=== PATIENT | male | born 1985 | race Caucasian/White ===

== ENCOUNTER 2023-02-21 22:13 | Emergency (ER) | payer OTHER, SELFPAY ==
[2023-02-21 22:25] VITALS: BP 116/82; PULSE 87; RESP 18; TEMP 37.9; O2SAT 98
--- NOTE | 2023-02-21 23:05 | ED.WOUNDLAC ---
HPI - Wound/Laceration General Chief Complaint: Wound/Laceration Stated Complaint: finger laceration Source: patient Mode of arrival: ambulatory Limitations: no limitations History of Present Illness HPI narrative: Patient is a 38-year-old male with a significant past medical history presents today with a laceration. He has laceration to his left 5th digit. If she has to decent size lacerations that were from chopping wood. The bleeding is controlled and has stopped now this happened about 2 hours ago. He tried his best to clean up the wound before he came here. He will most likely need stitches. Onset (ago): hour(s) Location: other Extremity Location: Left: hand (5th finger) Place: home Patient tetanus UTD: Yes Context: accidental Associated symptoms: pain Related Data Allergies Allergy/AdvReac Type Severity Reaction Status Date / Time codeine Allergy Intermediate Verified 02/18/17 10:09 Review of Systems Review of Systems: All systems reviewed & are unremarkable except as noted in HPI and below Constitutional: Constitutional: Reports no additional constitutional complaints Eyes: Eyes: Reports no additional eye complaints ENT: Reports system reviewed and no additional complaints, except as documented Cardiovascular: Cardiovascular: Reports no additional cardiovascular complaints Respiratory: Respiratory: Reports no additional respiratory complaints Gastrointestinal: Gastrointestinal: Reports no additional gastrointestinal complaints Musculoskeletal: Musculoskeletal: Reports no additional musculoskeletal complaints Integumentary/Breasts: Comments: Lacerations to left 5th digit Neurologic: Reports system reviewed and no additional complaints, except as documented Psychiatric: Psychiatric: Reports no additional psychiatric complaints Endocrine: Endocrine: Reports no additional endocrine complaints Hematologic/Lymphatic: Hematologic/Lymphatic: Reports no additional hematologic/lymphatic complaints Allergic/Immunologic: Allergic/Immunologic: Reports no additional allergic/immunologic complaints [facility] Family History Family History Other Diabetes mellitus Family history of cardiovascular disease Hypertension Social History Social History Smoking status: Unknown if ever smoked Alcohol intake: never Exam Const: General: healthy appearing Nutritional Appearance: well nourished Orientation/consciousness: patient oriented x3 Limitations: no limitations HENMT: Head: normal to inspection Ears: external ears normal Face/Nose/Sinus: Normal external nose present Face and sinus: normal facial exam Mouth: Yes Normal oral and palatal mucosa present Teeth and gingiva: dentition normal Throat: posterior oropharynx normal Eyes: Conjunctivae: conjunctivae normal Pupils: Equal, round and reactive pupils present EOM: EOMs intact bilaterally Direct Ophthalmoscopy: no photophobia Neck: Neck: normal visual inspection Chest: Chest palpation & inspection: normal inspection of the chest Resp: Effort & Inspection: normal respiratory effort Auscultation: clear to auscultation bilaterally Cardio: Rate: regular rate Rhythm: regular rhythm GI: GI Palp: Yes Soft to palpation Skin: General skin exam: normal color Rashes: no rashes Wounds: wounds noted ( 3 cm laceration to left 5th digit, below is a 2 cm laceration) Neuro: General: patient oriented x3 Cranial nerves: Yes Nystagmus not present Speech: normal speech Gait exam (Neuro): Normal gait present Extrem: General: normal to inspection Psych: Mental Status: mental status grossly normal Affect: normal affect Attitude: cooperative Course Vital Signs Vital signs: Vital Signs Temperature 100.3 F H 02/21/23 22:25 Pulse Rate 87 02/21/23 22:25 Respiratory Rate 18 02/21/23 22:25 Blood Pressure 116/82 02/21/23 22:
[2023-02-21 23:12] VITALS: BP 122/74; PULSE 70; RESP 18; O2SAT 97
== END 2023-02-21 23:18 | disposition home or self-care (01) ==
PROVIDERS: Emergency Provider Family Medicine
DX: S61.217A Laceration without foreign body of left little finger without damage to nail, initial encounter (principal); W45.8XXA Other foreign body or object entering through skin, initial encounter
CPT/HCPCS: 12002; 99283

== ENCOUNTER 2023-08-03 18:16 | Emergency (ER) | payer OTHER, SELFPAY ==
[2023-08-03 18:19] VITALS: BP 131/92; PULSE 81; RESP 20; TEMP 36.1; O2SAT 97
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
[2023-08-03] MEDS: HYDROcodone/acetaminophen (*CRX) 5-325 MG TABLET 1 TAB PO (18:43)
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
[2023-08-03 19:05] VITALS: BP 131/92; PULSE 81; RESP 20; TEMP 36.1; O2SAT 97
== END 2023-08-03 19:05 | disposition home or self-care (01) ==
PROVIDERS: Emergency Provider Student in an Organized Health Care Education/Training Program
DX: T65.91XA Toxic effect of unspecified substance, accidental (unintentional), initial encounter (principal); T22.611A Corrosion of second degree of right forearm, initial encounter; T32.0 Corrosions involving less than 10% of body surface
CPT/HCPCS: 99283; A9270

== ENCOUNTER 2024-06-01 13:38 | Emergency (ER) | payer OTHER, SELFPAY ==
--- NOTE | ~2024-06-01 | XR_ITS ---
EXAMINATION: XR thoracic spine 2V DATE: 06/01/2024 14:11 INDICATION: Upper back pain post twisting injury TECHNIQUE: One AP, lateral and lateral swimmer's views of the thoracic spine were obtained. COMPARISON: None. FINDINGS: 9 degrees upper thoracic levocurvature. Sagittal alignment is normal. Vertebral body heights are norm al. Mild disc height loss and minimal degenerative endplate changes at a few levels in the mid and lo wer thoracic spine. Multiple scattered small calcite nodules throughout both lungs and possibly in th e liver consistent with old granulomatous disease. No pleural effusion. Heart size is normal. IMPRESSION: 1. 9 degrees upper thoracic levocurvature with mild thoracic spondylosis. Reviewed, dictated and finalized at location A.
[2024-06-01 13:41] VITALS: BP 119/94; PULSE 84; RESP 18; TEMP 36.8; O2SAT 98
[2024-06-01 14:00] VITALS: BP 111/69; PULSE 83; RESP 17; O2SAT 97
--- NOTE | 2024-06-01 14:07 | ED_ITS ---
HPI - General Adult General Chief complaint: Back Pain/Injury Stated complaint: back pain Time Seen by Provider: 06/01/24 13:55 History of Present Illness HPI narrative: Nicholas presented to clinic with upper left back pain. It started after he lifted a heavy object but become worse today despite taking ibuprofen. No falls or trauma. No loss of bowel/bladder control, weakness or paralysis. Related Data Allergies Allergy/AdvReac Type Severity Reaction Status Date / Time No Known Allergies Allergy Verified 06/01/24 13:41 Review of Systems Review of Systems: All systems reviewed & are unremarkable except as noted in HPI and below PMFSH Family History Family History Other Diabetes mellitus Family history of cardiovascular disease Hypertension Social History Social History Smoking status: Unknown if ever smoked Alcohol intake: never Exam Const: General: cooperative, healthy appearing, comfortable, no acute distress, well developed, alert, awake and Physically active Orientation/consciousness: oriented to person, oriented to place and oriented to time HENMT: Head: normal to inspection, normocephalic and atraumatic Ears: hearing grossly normal bilaterally and external ears normal Face/Nose/Sinus: Normal external nose present Eyes: General: appearance normal, both eyes and all related structures Periorbital: periorbital findings normal Sclera: sclerae normal Pupils: Equal, round and reactive pupils present Neck: Neck: normal visual inspection Chest: Chest palpation & inspection: normal inspection of the chest Resp: Effort & Inspection: normal respiratory effort, able to speak in complete sentences and no respiratory distress Cardio: Jugular venous distension: no JVD Back/Spine/Pelvis: Other: TTP in the upper left back, muscles are hypertonic Skin: General skin exam: normal color and no rashes or lesions noted Neuro: General: oriented to person, oriented to place and oriented to time Cranial nerves: Yes Equal, round and reactive pupils present Extrem: General: normal to inspection Course Course Emergency Course: EXAMINATION: XR thoracic spine 2V DATE: 06/01/2024 14:11 INDICATION: Upper back pain post twisting injury TECHNIQUE: One AP, lateral and lateral swimmer's views of the thoracic spine were obtained. COMPARISON: None. FINDINGS: 9 degrees upper thoracic levocurvature. Sagittal alignment is normal. Vertebral body heights are normal. Mild disc height loss and minimal degenerative endplate changes at a few levels in the mid and lower thoracic spine. Multiple scattered small calcite nodules throughout both lungs and possibly in the liver consistent with old granulomatous disease. No pleural effusion. Heart size is normal. IMPRESSION: 1. 9 degrees upper thoracic levocurvature with mild thoracic spondylosis. Vital Signs Vital signs: Vital Signs Temperature 98.3 F 06/01/24 13:41 Pulse Rate 84 06/01/24 13:41 Respiratory Rate 18 06/01/24 13:41 Blood Pressure 119/94 H 06/01/24 13:41 Pulse Oximetry 98 06/01/24 13:41 Oxygen Delivery Room Air 06/01/24 13:41 Temperature 98.3 F 06/01/24 13:41 Pulse Rate 84 06/01/24 13:41 Respiratory Rate 18 06/01/24 13:41 Blood Pressure 119/94 H 06/01/24 13:41 Pulse Oximetry 98 06/01/24 13:41 Oxygen Delivery Room Air 06/01/24 13:41 Medical Decision Making Vital Signs Vital Signs: Vital Signs Temperature 98.3 F 06/01/24 13:41 Pulse Rate 84 06/01/24 13:41 Respiratory Rate 18 06/01/24 13:41 Blood Pressure 119/94 H 06/01/24 13:41 Pulse Oximetry 98 06/01/24 13:41 Oxygen Delivery Room Air 06/01/24 13:41 Temperature 98.3 F 06/01/24 13:41 Pulse Rate 84 06/01/24 13:41 Respiratory Rate 18 06/01/24 13:41 Blood Pressure 119/94 H 06/01/24 13:41 Pulse Oximetry 98 06/01/24 13:41 Oxygen Delivery Room Air 06/01/24 13:41 Discharge Plan Discharge Clinical Impression: Back pain, thoracic Patient Disposition: Home Condition: Stable Instructions: Back Pain (ED) Patient Language: Slovenian Prescriptions: No Action hydrocodone-acetaminophen 5-325 mg tablet 1 tablet PO Q6H PRN (Reason: pain) Qty: 10 0RF Follow-up/Referrals: UNKNOWN,DOCTOR [Non-Staff] -
[2024-06-01] MEDS: IBUPROFEN 400 MG TABLET PO (14:12)
[2024-06-01 14:30] VITALS: BP 105/72; PULSE 63; RESP 17; O2SAT 98
[2024-06-01 15:00] VITALS: BP 115/83; PULSE 60; RESP 16; TEMP 36.8; O2SAT 97
--- OUTSIDE RECORDS SUMMARY | 2024-06-01 15:30 | XMS_ITS | Clinical Summary ---
Author Organization [facility] Address [address] [place] [address] Care Team Providers Care Biostatistics Teacher Name Role Phone Fei Rosas Primary Care Provider [phone] Social History Tobacco Use Types Packs/Day Years Used Date Smoking Tobacco: Never Assessed Sex and Gender Information Value Date Recorded Sex Assigned at Not on file Legal Sex Male 8:35 PM CDT Gender Identity Not on file Sexual Orientation Not on file Plan of Treatment Health Maintenance Due Date Last Done Comments Annual Physical 01/04/1987 DTaP, Tdap and Td Vaccines (5 - Tdap) 01/04/1995 11/10/1992, 05/24/1987, 12/22/1985, Additional history exists Hepatitis C 01/04/2002 Hepatitis B Vaccines (1 of 3 - 19+ 3-dose series) 01/04/2003 COVID-19 Vaccine ( season) 2023 HPV Vaccines Aged Out No longer eligi ble based on patient's age to complete this topic Meningococcal B Vaccine Aged Out No l onger eligible based on patient's age to complete this topic Meningococcal Vaccine Aged Out No jay ana eligible based on patient's age to complete this topic Pneumococcal Vaccine: Pediatrics (0 to 5 Years) and At-Risk Patients (6 to 49 Years) Aged Out No longer eligible based on patient's age to complete this topic RSV Immunizations Under 20 Months Aged Out No longer eligible based on patient's age to complete this topic Insurance [facility] [employer] Care Teams Biostatistics Teacher Relationship Specialty Start Date End Date Fei Rosas PA [address] [place] [address] PCP - General PHYSICIAN BELTING CUTTER 08/07/23
--- OUTSIDE RECORDS SUMMARY | 2024-06-01 16:20 | XMS_ITS | Clinical Summary ---
Author Organization [facility] Address [address] [place] [address] Care Team Providers Care Soa Architect Name Role Phone Fei Rosas Primary Care Provider [phone] Social History Tobacco Use Types Packs/Day Years [...] patient's age to complete this topic Insurance [facility] AET[employer] Care Teams Soa Architect Relationship Specialty Start Date End Date Fei Rosas PA [address] [place] [address] PCP - General PHYSICIAN FOOD SERVICE AMBASSADOR 08/07/23
== END 2024-06-01 15:00 | disposition home or self-care (01) ==
PROVIDERS: Emergency Provider Family Medicine; PCP Internal Medicine
DX: M54.6 Pain in thoracic spine (principal)
CPT/HCPCS: 72070; 96374; 96375; 99284; A9270